=== PATIENT | female | born 1955 | race African-American/Black ===

== ENCOUNTER 2017-06-12 12:58 | Inpatient (IN) | payer BC ==
[~2017-06-12] VITALS: Ht 175.3 cm; Wt 70.1 kg
[2017-06-12 16:41] LABS: CLARITY URINE CLOUDY (CLEAR); COLOR URINE YELLOW (YELLOW); KETONES URINE NEGATIVE (NEGATIVE); LEUKOCYTE ESTERASE URINE 3+ (NEGATIVE); NITRITE URINE NEGATIVE (NEGATIVE); OCCULT BLOOD URINE 2+ (NEGATIVE); PH URINE >=9.0 (4.5-8.0); PROTEIN URINE 2+ (NEGATIVE); SPECIFIC GRAVITY URINE 1.012 (1.005-1.030); UROBILINOGEN URINE 0.2 E.U./dL (0.2-1.0)
[2017-06-12 16:52] LABS: HEMATOCRIT. 45.8 % (36.0-48.0); HEMOGLOBIN. 14.2 g/dL (12.0-16.0); MEAN CORPUSCULAR HEMOGLOBIN 32.9 pg (28.0-32.0); MEAN CORPUSCULAR VOLUME 106.3 fL (81.0-99.0); PLATELET 177 x1000/uL (130-400); RED BLOOD CELL COUNT 4.31 mill/uL (4.2-5.4); RED CELL DISTRIBUTION WIDTH 15.7 % (11.6-14.6)
[2017-06-12] MEDS ORDERED: SODIUM CHLORIDE 0.9% 1,000 ML IV SCH ×2 (17:00→21:24)
[2017-06-12 17:01] LABS: CHLORIDE 124 mEq/L (98-107)
[2017-06-12 17:04] LABS: CARBON DIOXIDE 9 mEq/L (21-32)
[2017-06-12 17:47] LABS: PLATELET ESTIMATE NORMAL
[2017-06-12] MEDS ORDERED: CEFTRIAXONE 1 G PREMIX 50 ML IV STA (19:04)
[2017-06-12 20:12] LABS: BG BASE EXCESS -20.5 mmol/L (-2.0-2.0); BG CARBOXYHEMOGLOBIN 0.2 % (0.5-1.5); BG DEOXYHEMOGLOBIN 2.1 % (0.0-5.0); BG FRACTION INSPIRED OXYGEN 21; BG HCO3 ACT 6.9 mmol/L (22.0-26.0); BG METHEMOGLOBIN 0.3 % (0.0-1.5); BG OXYGEN SATURATION 97.9 % (92.0-98.5); BG OXYHEMOGLOBIN 97.4 % (94.0-97.0); BG PCO2 21.7 mmHg (35.0-45.0); BG PH 7.123 (7.350-7.450); BG PO2 112.4 mmHg (75.0-100.0); BG SAMPLE SITE LEFT RADIAL; BG TOTAL HEMOGLOBIN 13.9 g/dL (12.0-18.0); BG VENT MODE ROOM AIR
[2017-06-12] MEDS ORDERED: SODIUM BICARBONATE 8.4% 1 MEQ/ML 50ML SYR IV ONE ×2 (20:30→22:45)
[2017-06-12] MEDS ORDERED: PIPERACILLIN/TAZ 3.375G PREMIX 50 ML IV SCH (21:30)
[2017-06-12] MEDS ORDERED: ACETAMINOPHEN 325MG TABLET PO PRN (21:30)
[2017-06-12] MEDS ORDERED: CLONIDINE 0.1MG TABLET PO PRN (21:30)
[2017-06-12] MEDS ORDERED: ONDANSETRON HCL 4MG/2ML VIAL IV PRN (21:30)
[2017-06-12] MEDS ORDERED: ACETAMINOPHEN 650MG SUPP PR PRN (22:45)
[2017-06-12] MEDS ORDERED: IPRATROPIUM/ALBUTEROL 0.5-3(2.5)MG/3ML NEB INH PRN (22:45)
[2017-06-12] MEDS ORDERED: SODIUM BICARBONATE 8.4% 1 MEQ/ML 50ML SYR IV NR ×2 (23:00→23:30)
[2017-06-13] VITALS (13 sets, daily range): BP systolic 112–143; BP diastolic 63–98
[2017-06-13] MEDS ORDERED: SODIUM BICARBONATE 8.4% 1 MEQ/ML 50ML SYR IV NR ×3 (00:30→01:00)
[2017-06-13] MEDS ORDERED: LEVOFLOXACIN 500MG PREMIX 100 ML IV NR (03:00)
[2017-06-13] MEDS ORDERED: SODIUM CHLORIDE 0.9% 1,000 ML IV SCH (03:00)
[2017-06-13] MEDS ORDERED: SODIUM CHLORIDE 0.9% 1,000 ML IV NR (03:00)
[2017-06-13] MEDS: PIPERACILLIN/TAZ 2.25G PREMIX 50 ML IV SCH ×3 (05:12→20:11)
[2017-06-13 06:12] LABS: HEMATOCRIT. 39.9 % (36.0-48.0); HEMOGLOBIN. 12.9 g/dL (12.0-16.0); MEAN CORPUSCULAR HEMOGLOBIN 32.9 pg (28.0-32.0); MEAN CORPUSCULAR VOLUME 101.9 fL (81.0-99.0); PLATELET 168 x1000/uL (130-400); RED BLOOD CELL COUNT 3.92 mill/uL (4.2-5.4)
[2017-06-13 06:42] LABS: CARBON DIOXIDE 17 mEq/L (21-32); CHLORIDE 126 mEq/L (98-107)
[2017-06-13] MEDS ORDERED: DEXTROSE 50% WATER 50ML SYRINGE IV PRN (07:45)
[2017-06-13] MEDS: FAMOTIDINE 20MG/2ML VIAL IV SCH (08:11)
[2017-06-13] MEDS: ASPIRIN 81MG EC TABLET PO SCH (08:11)
[2017-06-13] MEDS: ENOXAPARIN 30MG/0.3ML SYR SUBCUT SCH (08:12)
[2017-06-13] MEDS: DEXT 5% WATER + KCL 20MEQ/L 1,000 ML IV SCH (08:12)
[2017-06-13 08:43] LABS: BG BASE EXCESS -9.8 mmol/L (-2.0-2.0); BG CARBOXYHEMOGLOBIN 0.9 % (0.5-1.5); BG DEOXYHEMOGLOBIN 2.2 % (0.0-5.0); BG FRACTION INSPIRED OXYGEN 21; BG HCO3 ACT 15.1 mmol/L (22.0-26.0); BG METHEMOGLOBIN 0.3 % (0.0-1.5); BG OXYGEN SATURATION 97.8 % (92.0-98.5); BG OXYHEMOGLOBIN 96.6 % (94.0-97.0); BG PCO2 30.4 mmHg (35.0-45.0); BG PH 7.314 (7.350-7.450); BG PO2 101.5 mmHg (75.0-100.0); BG SAMPLE SITE RIGHT RADIAL; BG TOTAL HEMOGLOBIN 12.6 g/dL (12.0-18.0); BG VENT MODE ROOM AIR
[2017-06-13 11:23] LABS: PLATELET ESTIMATE NORMAL
[2017-06-13] MEDS: INSULIN LISPRO 100 UNITS/ML SUBCUT SCH ×3 (12:20→20:43)
[2017-06-13] MEDS: BLOOD SUGAR DIAGNOSTIC STRIP TEST SCH ×3 (12:42→20:37)
[2017-06-13] MEDS ORDERED: CEFTRIAXONE 1 G PREMIX 50 ML IV SCH (19:00)
[2017-06-14] VITALS (15 sets, daily range): BP systolic 110–145; BP diastolic 69–87
[2017-06-14] MEDS: DEXT 5% WATER + KCL 20MEQ/L 1,000 ML IV SCH (04:29)
[2017-06-14] MEDS: PIPERACILLIN/TAZ 2.25G PREMIX 50 ML IV SCH ×3 (04:29→21:20)
[2017-06-14] MEDS: BLOOD SUGAR DIAGNOSTIC STRIP TEST SCH ×4 (06:24→21:52)
[2017-06-14 07:07] LABS: BASOPHILS % 0.9 % (0.0-2.0); HEMATOCRIT. 37.3 % (36.0-48.0); HEMOGLOBIN. 11.8 g/dL (12.0-16.0); LYMPHOCYTES % 10.4 % (20.0-50.0); MEAN CORPUSCULAR HEMOGLOBIN 32.3 pg (28.0-32.0); MEAN CORPUSCULAR VOLUME 102.3 fL (81.0-99.0); MEAN PLATELET VOLUME 9.2 fl (7.4-10.4); MONOCYTES % 7.8 % (2.0-8.0); NEUTROPHILS % 78.9 % (40.0-76.0); PLATELET 140 x1000/uL (130-400); RED BLOOD CELL COUNT 3.64 mill/uL (4.2-5.4); RED CELL DISTRIBUTION WIDTH 15.1 % (11.6-14.6)
[2017-06-14] MEDS: INSULIN LISPRO 100 UNITS/ML SUBCUT SCH ×4 (07:20→21:00)
[2017-06-14] MEDS: ENOXAPARIN 30MG/0.3ML SYR SUBCUT SCH (09:19)
[2017-06-14] MEDS: ASPIRIN 81MG EC TABLET PO SCH (09:19)
[2017-06-14] MEDS: FAMOTIDINE 20MG/2ML VIAL IV SCH (09:19)
[2017-06-15] VITALS (16 sets, daily range): BP systolic 98–147; BP diastolic 66–101
[2017-06-15] MEDS: DEXT 5% WATER + KCL 20MEQ/L 1,000 ML IV SCH ×2 (02:10→22:52)
[2017-06-15] MEDS ORDERED: LEVOFLOXACIN 250MG PREMIX 50 ML IV SCH (03:00)
[2017-06-15] MEDS: PIPERACILLIN/TAZ 2.25G PREMIX 50 ML IV SCH (04:14)
[2017-06-15] MEDS: BLOOD SUGAR DIAGNOSTIC STRIP TEST SCH ×4 (06:15→21:00)
[2017-06-15] MEDS: INSULIN LISPRO 100 UNITS/ML SUBCUT SCH ×4 (07:20→21:00)
[2017-06-15] MEDS: ASPIRIN 81MG EC TABLET PO SCH (08:58)
[2017-06-15] MEDS: ENOXAPARIN 30MG/0.3ML SYR SUBCUT SCH (08:58)
[2017-06-15] MEDS: FAMOTIDINE 20MG/2ML VIAL IV SCH (08:58)
[2017-06-15 10:51] LABS: EOSINOPHILS % 3.7 % (0.0-5.0); HEMATOCRIT. 34.7 % (36.0-48.0); HEMOGLOBIN. 10.9 g/dL (12.0-16.0); LYMPHOCYTES % 13.3 % (20.0-50.0); MEAN CORPUSCULAR VOLUME 102.1 fL (81.0-99.0); MEAN PLATELET VOLUME 8.6 fl (7.4-10.4); MONOCYTES % 9.1 % (2.0-8.0); NEUTROPHILS % 72.9 % (40.0-76.0); PLATELET 130 x1000/uL (130-400); RED CELL DISTRIBUTION WIDTH 15.1 % (11.6-14.6)
[2017-06-15] MEDS ORDERED: SODIUM BICARBONATE 4% (2.4MEQ) 5ML VIAL IV ONE (14:46)
[2017-06-15] MEDS ORDERED: LIDOCAINE HCL 1% 20ML VIAL (Pyxis) INJ ONE (14:46)
[2017-06-15] MEDS: CEFTRIAXONE 1 G PREMIX 50 ML IV SCH (16:14)
[2017-06-16] VITALS (12 sets, daily range): BP systolic 123–153; BP diastolic 84–104
[2017-06-16] MEDS: INSULIN LISPRO 100 UNITS/ML SUBCUT SCH ×4 (05:25→21:00)
[2017-06-16] MEDS: BLOOD SUGAR DIAGNOSTIC STRIP TEST SCH ×4 (05:25→21:25)
[2017-06-16 06:20] LABS: BASOPHILS % 0.8 % (0.0-2.0); EOSINOPHILS % 4.8 % (0.0-5.0); HEMOGLOBIN. 11.2 g/dL (12.0-16.0); LYMPHOCYTES % 16.4 % (20.0-50.0); MEAN CORPUSCULAR HEMOGLOBIN 33.5 pg (28.0-32.0); MEAN PLATELET VOLUME 8.9 fl (7.4-10.4); MONOCYTES % 7.8 % (2.0-8.0); NEUTROPHILS % 70.2 % (40.0-76.0); PLATELET 126 x1000/uL (130-400); RED BLOOD CELL COUNT 3.33 mill/uL (4.2-5.4); RED CELL DISTRIBUTION WIDTH 14.8 % (11.6-14.6)
[2017-06-16] MEDS: ASPIRIN 81MG EC TABLET PO SCH (08:38)
[2017-06-16] MEDS: FAMOTIDINE 20MG/2ML VIAL IV SCH (08:38)
[2017-06-16] MEDS: ENOXAPARIN 30MG/0.3ML SYR SUBCUT SCH (08:39)
[2017-06-16] MEDS ORDERED: MIDAZOLAM HCL 2 MG/2 ML VIAL ONE (09:26)
[2017-06-16] MEDS ORDERED: ASPIRIN 325MG TABLET ONE (10:02)
[2017-06-16] MEDS ORDERED: CLOPIDOGREL 75MG TABLET ONE (10:02)
[2017-06-16] MEDS ORDERED: IODIXANOL 320MG/ML 100 ML BOTTLE IV ONE (10:08)
[2017-06-16] MEDS ORDERED: IOVERSOL 240MG/ML 100ML BOTTLE IV ONE (10:08)
[2017-06-16] MEDS ORDERED: PROTAMINE SULFATE 10MG/ML VIAL 5ML IV ONE (10:15)
[2017-06-16] MEDS: CEFTRIAXONE 1 G PREMIX 50 ML IV SCH (13:18)
[2017-06-16] MEDS: SODIUM BICARBONATE 650 MG TABLET PO SCH ×2 (13:18→17:20)
[2017-06-16] MEDS: SODIUM BICARBONATE 150 MEQ in DEXTROSE 5% WATER 1,000 ML IV SCH (14:37)
[2017-06-17] VITALS (9 sets, daily range): BP systolic 111–140; BP diastolic 72–95
[2017-06-17] MEDS: BLOOD SUGAR DIAGNOSTIC STRIP TEST SCH ×2 (06:19→12:17)
[2017-06-17 06:32] LABS: EOSINOPHILS % 6.2 % (0.0-5.0); HEMATOCRIT. 34.5 % (36.0-48.0); HEMOGLOBIN. 11.3 g/dL (12.0-16.0); LYMPHOCYTES % 23.7 % (20.0-50.0); MEAN CORPUSCULAR HEMOGLOBIN 33.1 pg (28.0-32.0); MEAN CORPUSCULAR VOLUME 100.5 fL (81.0-99.0); MEAN PLATELET VOLUME 8.9 fl (7.4-10.4); MONOCYTES % 8.1 % (2.0-8.0); PLATELET 131 x1000/uL (130-400); RED BLOOD CELL COUNT 3.43 mill/uL (4.2-5.4); RED CELL DISTRIBUTION WIDTH 14.7 % (11.6-14.6)
[2017-06-17] MEDS: INSULIN LISPRO 100 UNITS/ML SUBCUT SCH (07:20)
[2017-06-17] MEDS: SODIUM BICARBONATE 150 MEQ in DEXTROSE 5% WATER 1,000 ML IV SCH (07:27)
[2017-06-17] MEDS: ASPIRIN 81MG EC TABLET PO SCH (08:16)
[2017-06-17] MEDS: FAMOTIDINE 20MG/2ML VIAL IV SCH (08:16)
[2017-06-17] MEDS: ENOXAPARIN 30MG/0.3ML SYR SUBCUT SCH (08:16)
[2017-06-17] MEDS: SODIUM BICARBONATE 650 MG TABLET PO SCH (08:16)
[2017-06-17 08:58] LABS: PHOSPHORUS 3.2 mg/dL (2.5-4.9)
== END 2017-06-17 13:05 | disposition home or self-care (01) | DRG 682 ==
LOC: ER 13:25 → 3WST 21:08 → SUPCPDRO 21:23 → EDBEDREQ 22:09 → EDBEDREQTM 22:09 → EDBEDREQSVC 22:09 → EDBEDREQ 22:35 → ENRESERV 23:52 → EDBEDREQTM 06-13 00:14 → EDBEDREQSVC 06-13 00:14
PROVIDERS: ADMIT Internal Medicine; ATTEND Internal Medicine
PROC: 02HV33Z Insertion of Infusion Device into Superior Vena Cava, Percutaneous Approach (ICD-10-PCS; principal; 2017-06-15)
PROC: B5181ZA Fluoroscopy of Superior Vena Cava using Low Osmolar Contrast, Guidance (ICD-10-PCS; 2017-06-15)
DX: N17.9 Acute kidney failure, unspecified (principal); G93.41 Metabolic encephalopathy; E87.0 Hyperosmolality and hypernatremia; E87.2 Acidosis; N39.0 Urinary tract infection, site not specified; I12.9 Hypertensive chronic kidney disease with stage 1 through stage 4 chronic kidney disease, or unspecified chronic kidney disease; N18.9 Chronic kidney disease, unspecified; B96.89 Other specified bacterial agents as the cause of diseases classified elsewhere; Z85.51 Personal history of malignant neoplasm of bladder; Z93.6 Other artificial openings of urinary tract status
CPT/HCPCS: 36415; 36569; 36600; 70450; 71045; 74176; 76937; 77001; 80048; 80053; 81001; 82375; 82805; 82962; 83605; 83615; 83735; 84100; 85007; 85025; 85027; 87077; 87086; 87186; 87804; 93005; 93970; 96361; 96365; 96375; 97116; 97162; 97165; 99291; A6261; C1725; J0696; J1650; J1956; J2250; J2543; J2720; J3490; J7030; J7050; J7060; J7070; Q9967